=== PATIENT | female | born 1980 | race Caucasian/White ===

== ENCOUNTER 2022-04-17 10:24 | Emergency (ER) | payer OTHER, BC ==
[~2022-04-17] VITALS: Ht 165.1 cm; Wt 59.0 kg
[2022-04-17] MEDS ORDERED: AMLODIPINE BES2.5 MG PO (10:48)
[2022-04-17] MEDS ORDERED: DESVENLAFAXINE50 M3 PO (10:48)
== END 2022-04-17 12:30 | disposition home or self-care (01) ==
LOC: ED 10:24
DX: S30.0XXA Contusion of lower back and pelvis, initial encounter (principal); Z88.0 Allergy status to penicillin; Z79.899 Other long term (current) drug therapy; Y93.K1 Activity, walking an animal; W18.30XA Fall on same level, unspecified, initial encounter; W19.XXXA Unspecified fall, initial encounter
CPT/HCPCS: 72220; 99283-25